=== PATIENT | female | born 1975 | race Caucasian/White ===

== ENCOUNTER 2021-01-01 21:38 | Emergency (ER) | payer MEDICAID, OTHER ==
[~2021-01-01] VITALS: Ht 170.2 cm; Wt 81.8 kg
[~2021-01-01 21:38] MED LIST: DSS100 PO; FERR-89 PO; PROV5 PO
[2021-01-01 23:20] LABS: BASOPHILS % (AUTO) 0.3 % (0.0-2.0); EOSINOPHILS % (AUTO) 0.1 % (1.0-6.0); HEMATOCRIT 41.9 % (36-46); HEMOGLOBIN 13.9 g/dL (12.0-16.0); LYMPHOCYTES # (AUTO) 1.1 K/uL (1.0-4.8); LYMPHOCYTES % (AUTO) 18.6 % (22.0-44.0); MEAN CORPUSCULAR HEMOGLOBIN 28.9 pg (26.0-34.0); MEAN CORPUSCULAR VOLUME 88 fL (80-100); MONOCYTES # (AUTO) 0.5 K/uL (0.1-1.0); MONOCYTES % (AUTO) 8.2 % (2.0-9.0); NEUTROPHILS # (AUTO) 4.2 K/uL (1.8-7.7); NEUTROPHILS % (AUTO) 72.8 % (40.0-70.0); PLATELET COUNT (AUTO) 173 K/uL (150-450); RED BLOOD CELL COUNT(AUTO) 4.79 MIL/uL (4.00-5.20); RED CELL DISTRIBUTION WIDTH 13.6 % (11.5-14.5)
[2021-01-01 23:23] LABS: COVID AG,FIA SOURCE NASOPHARYNGEAL
[2021-01-01 23:54] LABS: ANION GAP 10 mmol/L (8-16); CALCIUM, TOTAL 8.5 mg/dL (8.8-10.5); CARBON DIOXIDE 24 mmol/L (22-29); CHLORIDE 101 mmol/L (98-107); CREATININE 0.58 mg/dL (0.60-1.30); GLOMERULAR FILTR. RATE CALC > 60 mL/min (>60); GLUCOSE,RANDOM 117 mg/dL (70-110); POTASSIUM 3.6 mmol/L (3.5-5.1); SODIUM SERUM 135 mmol/L (136-145); UREA NITROGEN, BLOOD 10 mg/dL (7-18)
[2021-01-02] LABS: ALANINE AMINOTRANSFERASE 27 U/L (12-78); ALBUMIN 3.6 g/dL (3.4-5.0); ALKALINE PHOSPHATASE 100 U/L (46-116); ASPARTATE AMINOTRANSFERASE 18 U/L (15-37); BILIRUBIN,TOTAL 0.6 mg/dL (0.1-1.0); LIPASE 67 U/L (73-393); TOTAL PROTEIN, SERUM 7.5 g/dL (6.4-8.2)
[2021-01-02] MEDS ORDERED: SODIUM CHLORIDE 0.9% 1,000 ML IV ONE (00:45)
[2021-01-02] MEDS ORDERED: KETOROLAC TROMETHAMINE 30 MG/ML VIAL IVP ONE (00:45)
[2021-01-02] MEDS ORDERED: ONDANSETRON HCL 4 MG/2 ML VIAL IVP ONE (00:45)
[2021-01-02] MEDS ORDERED: ACETAMINOPHEN 500 MG TABLET PO ONE (00:45)
[2021-01-02 02:50] VITALS: BP 108/75
== END 2021-01-02 03:12 | disposition home or self-care (01) ==
LOC: EMS 21:38
DX: R19.7 Diarrhea, unspecified (principal); R11.2 Nausea with vomiting, unspecified; R50.9 Fever, unspecified; G43.909 Migraine, unspecified, not intractable, without status migrainosus; Z20.822 Contact with and (suspected) exposure to COVID-19
CPT/HCPCS: 80053; 82271; 83690; 85025; 87426; 93005; 96361; 96374; 96375; 99285; J1885; J2405; J7030

== ENCOUNTER 2025-02-17 03:41 | Emergency (ER) | payer OTHER ==
[~2025-02-17] VITALS: Ht 170.2 cm; Wt 81.0 kg
[~2025-02-17 03:41] MED LIST changes: -FERR-89 PO; +FERR325T27 PO
[2025-02-17 04:42] LABS: PLATELET COUNT (AUTO) 187 K/uL (150-450); RED BLOOD CELL COUNT(AUTO) 4.50 MIL/uL (4.00-5.20); RED CELL DISTRIBUTION WIDTH 15.7 % (11.5-14.5); WHITE BLOOD COUNT (AUTO) 5.5 K/uL (4.5-11.0)
[2025-02-17 04:48] LABS: APPEARANCE,URINE CLEAR (CLEAR); GLUCOSE, URINE (UA) NEGATIVE (NEGATIVE); LEUKOCYTE ESTERASE ,URINE NEGATIVE (NEGATIVE); NITRATE,URINE NEGATIVE (NEGATIVE); OCCULT BLOOD,URINE NEGATIVE (NEGATIVE); SPECIFIC GRAVITIY, URINE 1.004 (1.003-1.030)
[2025-02-17 04:52] LABS: CALCIUM, TOTAL 8.6 mg/dL (8.8-10.5); CREATININE 0.57 mg/dL (0.60-1.30); GLOMERULAR FILTR. RATE CALC > 60 mL/min (>60); GLUCOSE,RANDOM 109 mg/dL (70-110); SODIUM SERUM 138 mmol/L (136-145); UREA NITROGEN, BLOOD 13 mg/dL (7-18)
[2025-02-17 05:03] LABS: ASPARTATE AMINOTRANSFERASE 20 U/L (15-37); HCG,QUANTITATIVE < 1 mIU/mL (0-6); TOTAL PROTEIN, SERUM 7.0 g/dL (6.4-8.2)
[2025-02-17] MEDS: SODIUM CHLORIDE 0.9% 1,000 ML IV ONE (05:33)
[2025-02-17] MEDS: FAMOTIDINE 20 MG/2 ML VIAL IVP ONE (05:54)
[2025-02-17] MEDS ORDERED: POLY119P3 PO (06:51)
[2025-02-17] MEDS ORDERED: IOHEXOL 350 MG/ML 100 ML VIAL ONE (10:11)
[2025-02-17] MEDS ORDERED: SODIUM CHLORIDE 0.9% 100 ML ONE (10:12)
[2025-02-17 16:28] VITALS: BP 122/75; PULSE 80; RESP 16; TEMP 98.1; O2SAT 99
== END 2025-02-17 16:28 | disposition home or self-care (01) ==
LOC: EMS 03:41
DX: K59.00 Constipation, unspecified (principal); R10.13 Epigastric pain; R11.0 Nausea; N89.8 Other specified noninflammatory disorders of vagina; G43.909 Migraine, unspecified, not intractable, without status migrainosus; Z79.899 Other long term (current) drug therapy
CPT/HCPCS: 99285; 74177; 96374; 96361; 76705; 80048; 80076; 81003; 83690; 84702; 84703; 85025; 36415; 74018; Q9967; J3490; J7030; J7050